=== PATIENT | male | born 1960 | race Two or more races ===

== ENCOUNTER 2017-07-30 07:54 | Emergency (ER) | payer MEDICAID, OTHER ==
[~2017-07-30] VITALS: Ht 167.6 cm; Wt 100.0 kg
[2017-07-30] MEDS ORDERED: ASPIRIN 81MG TABLET PO ONE (08:30)
[2017-07-30] MEDS ORDERED: IPRATROPIUM BROMIDE (0.02%) 0.5MG/2.5ML NEB HHN STA (08:35)
[2017-07-30] MEDS ORDERED: ALBUTEROL (0.083%) 2.5MG/3ML NEB HHN STA (08:35)
[2017-07-30 09:06] LABS: BASOPHILS % 0.7 % (0.0-2.0); EOSINOPHILS % 9.7 % (0.0-5.0); HEMATOCRIT. 40.6 % (42.0-52.0); HEMOGLOBIN. 13.6 g/dL (14.0-18.0); LYMPHOCYTES % 20.8 % (20.0-50.0); MEAN CORPUSCULAR HEMOGLOBIN 29.5 pg (28.0-32.0); MONOCYTES % 7.6 % (2.0-8.0); NEUTROPHILS % 61.2 % (40.0-76.0); PLATELET 230 x1000/uL (130-400); RED BLOOD CELL COUNT 4.61 mill/uL (4.7-6.1); RED CELL DISTRIBUTION WIDTH 14.2 % (11.6-14.6)
[2017-07-30 09:08] LABS: CHLORIDE 108 mEq/L (98-107)
[2017-07-30 09:09] LABS: PROTHROMBIN TIME 10.6 sec (9.4-11.6)
[2017-07-30 10:25] VITALS: BP 130/70
== END 2017-07-30 10:25 | disposition home or self-care (01) ==
LOC: ER 08:26
DX: G47.30 Sleep apnea, unspecified (principal); F17.210 Nicotine dependence, cigarettes, uncomplicated; Z71.6 Tobacco abuse counseling
CPT/HCPCS: 36415; 71045; 80053; 83880; 84484; 85025; 85610; 93005; 94640; 99285; J7611; Z7610